=== PATIENT | female | born 1950 | race Native Hawaiian/Other Pacific Islander ===

== ENCOUNTER 2017-01-06 13:08 | Outpatient (CLI) | payer OTHER ==
[~2017-01-06 13:08] MED LIST: CLONAZEP ODT2 MG PO; GABA300C2 PO; LEVOTHROID100 MCG PO; NAPROSYN500 MG PO; OMEPRAZOLE20 M1 PO; SAVELLA50 MG PO
== END 2017-01-06 19:09 | disposition home or self-care (01) ==
LOC: RESP 13:08
DX: R06.02 Shortness of breath (principal)
CPT/HCPCS: 94640; 94664

== ENCOUNTER 2017-09-21 08:38 | Outpatient (CLI) | payer OTHER ==
[2017-09-21 09:11] LABS: PLATELET COUNT 260 K/uL (152-353)
[2017-09-21 09:34] LABS: POTASSIUM 4.1 mmol/L (3.6-5.2)
== END 2017-09-21 20:00 | disposition home or self-care (01) ==
LOC: LABW 08:38
PROVIDERS: Nurse Practitioner
DX: R53.83 Other fatigue (principal); E53.8 Deficiency of other specified B group vitamins; D50.8 Other iron deficiency anemias
CPT/HCPCS: 36415; 80053; 82607; 82728; 82746; 83540; 83550; 84439; 84443; 85027

== ENCOUNTER 2019-03-17 13:08 | Outpatient (CLI) | payer OTHER | END 2019-03-17 20:27 | disposition home or self-care (01) | LOC: RESP 13:08 | DX: J44.9 Chronic obstructive pulmonary disease, unspecified (principal) ==

== ENCOUNTER 2021-05-06 08:55 | Outpatient (CLI) | payer OTHER | END 2021-05-06 20:57 | disposition home or self-care (01) | LOC: RAD 08:55 | PROVIDERS: ATTEND Registered Nurse | DX: J20.9 Acute bronchitis, unspecified (principal) ==

== ENCOUNTER 2021-07-24 07:44 | Outpatient (CLI) | payer OTHER ==
[2021-07-24 08:02] LABS: PLATELET COUNT 315 K/uL (152-353)
== END 2021-07-24 18:54 | disposition home or self-care (01) ==
LOC: LABW 07:44
PROVIDERS: ATTEND Internal Medicine Cardiovascular Disease
DX: Z79.899 Other long term (current) drug therapy (principal)
CPT/HCPCS: 36415; 80053; 80061; 85027